=== PATIENT | female | born 1935 | race Caucasian/White ===

== ENCOUNTER → 2016-10-10 | Outpatient (CLI) | payer MEDICARE, OTHER ==
[~2016-10-10] MED LIST: ACET-1651 PO; ACET-763 PO; ALBU8.5H3 IH; ALPR0.2563 PO; ASPI-611 PO; ATOR20TA18 PO; CALC-686 PO; CITA-49 PO; FISH1CAP PO; GLUC1CAP PO; GUAI-485 PO; HYDR-2164 PO; ISOS30TA46 PO; LEVO25TA51 PO; LORA-326 PO; MEGA RED; MELA10TA PO; MIDO10TA PO; MULT-806 PO; PANT40TA32 PO; POLY17PO3 PO; [UNRECOGNIZED DRUG - CODE] PO
== END ==
LOC: WC.BC 10:15
DX: Z12.31 Encounter for screening mammogram for malignant neoplasm of breast (principal); N64.59 Other signs and symptoms in breast; Z80.3 Family history of malignant neoplasm of breast
CPT/HCPCS: 77063; G0202